=== PATIENT | male | born 1975 | race Caucasian/White ===

== ENCOUNTER → 2024-01-07 14:33 | Outpatient (REF) | payer BC, SELFPAY | LOC: HWRCS 14:33 | PROVIDERS: ATTENDING PHYSICIAN Internal Medicine Cardiovascular Disease; FAMILY PHYSICIAN Family Medicine | DX: I48.91 Unspecified atrial fibrillation (principal) | CPT/HCPCS: 93306 ==

== ENCOUNTER 2024-01-27 06:04 | Day surgery (SDC) | payer BC, SELFPAY ==
[2024-01-12 07:58] VITALS: BMI 31.4
[2024-01-12 08:25] LABS: % Basophils 0.9 % (0-2); % Eosinophils 1.9 % (0-6); % Immature Granulocytes 0.1 % (0-0.5); % Lymphocytes 25.4 % (20.5-51.1); % Monocytes 6.8 % (1.7-9.3); % Neutrophils 64.9 % (42.2-75.2); Absolute Basophils 0.1 10^3/uL (0-0.2); Absolute Eosinophils 0.2 10^3/uL (0-0.7); Absolute Monocytes 0.5 10^3/uL (0.1-0.6); Absolute Neutrophils 5.2 10^3/uL (1.4-6.5); Hematocrit 45.9 % (39.0-52.0); Hemoglobin 15.8 g/dL (13.0-18.0); Mean Corp Hgb Conc. 34.4 g/dL (33.0-37.0); Mean Corpuscular Hgb 30.9 pg (27.0-31.0); Mean Corpuscular Volume 89.6 fL (80.0-94.0); Mean Platelet Volume 9.7 fL (7.4-10.4); Nucleated Red Blood Cells % 0 % (-); Platelet Count 377 10^3/uL (130-400); Red Blood Cell Count 5.12 10^6/uL (4.70-6.10); Red Cell Dist. Width 11.8 % (11.5-14.5)
[2024-01-12 08:35] LABS: INR 1.15; PT 14.6 Sec (11.4-14.6)
[2024-01-12 08:56] LABS: ALT (SGPT) 25 U/L (0-50); AST (SGOT) 27 U/L (17-59); Albumin 4.6 g/dl (3.5-5.0); Alkaline Phosphatase 68 U/L (38-126); Blood Urea Nitrogen 15 mg/dl (9-20); Calcium 10.2 mg/dl (8.4-10.2); Carbon Dioxide 28 mmol/L (22-30); Chloride 106 mmol/L (98-107); Estimated Creatinine Clearance 114 ml/min; Glucose 120 mg/dl (70-99); Potassium 4.8 mmol/L (3.5-5.1); Sodium 144 mmol/L (135-145); Total Bilirubin 1.7 mg/dl (0.2-1.3); eGFR > 60.00
[2024-01-27] VITALS (18 sets, daily range): BP systolic 116–180; BP diastolic 77–133
[2024-01-27] MEDS: NSS 500 IV (06:39)
[2024-01-27] MEDS: TYLENOL 1000 MG PO (06:55)
[2024-01-27 06:56] LABS: Glucose - Point of Care 118 mg/dl (70-99)
[2024-01-27 08:44] LABS: ACT-LR - POC 199 Seconds (116-155)
[2024-01-27 09:02] LABS: ACT-LR - POC 234 Seconds (116-155)
[2024-01-27 09:23] LABS: ACT-LR - POC 234 Seconds (116-155)
--- NOTE | 2024-01-27 09:32 | ITS.CL.ABL ---
[employer] [facility] Chair - Ablation
Ablation
Procedure Report:
ELECTROPHYSIOLOGY ABLATION STUDY
�
DATE:: January 27, 2024�������������������������� REFERRING: Dr. Keven Loredo
�
INDICATION: Persistent supraventricular tachycardia in the form of atrial fibrillation.� At times the patient has organized arrhythmia suggesting atypical flutter
�
HISTORY: See H and P.� As above
�
ANTIARRHYTHMIC DRUG: Discussed class I class III under the drug therapy the patient opted for pulmonary vein isolation
�
PRE-PROCEDURE CAMILLE: No atrial thrombus on intracardiac ultrasound with heavily calcified interatrial fossa and ligament of Leonard region.
�
PRESENTING RHYTHM: Atrial tachycardia�flutter cycle length 260 ms with a P wave that is positive to flat on the precordium and mostly positive in lead 2 and 3.
�
'TIME-OUT':� called and confirmed.
�
SEDATION/ANESTHESIA:� provided via the anesthesia department using general anesthesia (LMA).
�
INTRAVENOUS/ARTERIAL ACCESS:
Right femoral venous - 8Fr
Left femoral venous - 8 Fr, 6 Fr
[id number] suture to each groin
Ultrasound guidance for bilateral femoral vein access was utilized by me to obtain access with demonstration of normal anatomy
CHADS-VASC Score:
�
HAS-Bled Score
�
PROCEDURE:�
1.� A decapolar CS catheter was placed within the CS for mapping and pacing.� This was also used as the reference catheter for the 3-D map. When the coronary sinus catheter was placed the patient was initially in an atrial tachycardia flutter 260
ms with immediate degeneration and atrial fibrillation. Activation of the coronary sinus was proximal distal the week did not have time to entrain tachycardia. As such we proceeded to left atrial access and ablation of the pulmonary veins and the
posterior wall to target the presumed left atrial flutter mechanism. Post ablation we performed EP study and the patient was noninducible for any other tachyarrhythmia.
�
2. The intracardiac ultrasound catheter was positioned in the RA to identify the FO for targeting of transseptal puncture, assist� in identification of the pulmonary vein ostia, monitoring pre and post ablation pulmonary vein flow velocities,
monitoring for 'bubble' formation during RF application as a sign of thermal injury,� and to monitor for pericardial effusion during mapping and ablation procedure.�� Left atrial size, LV ejection fraction, and pulmonary vein flows were monitored
pre and post ablation procedure. The other valves were inspected and found to be free of significant regurgitation or stenosis.
�
3.� Half of the calculated heparin bolus was administered prior to the first transeptal puncture.� Transseptal puncture was performed to diagnose RA and LA pressure so that safety of LA mapping and ablation could be further assessed, and to access
the left atrium and pulmonary veins for mapping and ablation.� This entailed advancing an 10 Palestinian steerable sheath with dilator into the superior vena cava and withdrawing both (monitoring intracardiac ultrasound, fluoroscopy and tip pressure)
with the tip oriented toward the atrial septum.� The fossa ovalis was engaged (indicated by sudden displacement of the sheath tip as well as tenting of the fossa seen on intracardiac ultrasound).� Left atrial access required a pass with the
Brockenbrough needle extended.� Left atrial catheter position was confirmed by pressure monitoring (RA mean pressure 8 mm Hg and LA mean presure 14 mm Hg), LA saturation (99%),� as well as fluoroscopy.� The sheath was advanced over the dilator and
positioned in the left atrium.� This procedure was repeated for the Agilis sheath upgraded over a ProTrac wire to the 10 Palestinian Contour sheath.� The remainder of the calculated heparin bolus was administered and heparin was
infused with multiple boluses to increase the ACT throughout the case. Despite an additional 4000 units and 2000 unit boluses during brief left atrial access the CT peaked at 240s (in addition to initial 7400u bolus/drip). No apparent clot
formation was seen on the catheters with intracardiac ultrasound inspection throughout the case.
�
4.� RA pacing was performed via the proximal decapolar poles and LA pacing was performed via the distal decapolr poles.
�
5. A quadrapolar catheter was first positioned at the His position for His Bundle recording which was tagged via the 3-D Navex sytem, and then passed to the RVA for RV pacing and recording.
�
6. There was connection at the roof of the left superior pulmonary vein and the inferior posterior region of the right inferior pulmonary vein at initial mapping with a multipolar catheter. LIPV, LSPV, RSPV and the RIPV as well as the posterior
wall were targeted with the PFA catheter.
�
7.� Next, a 3-D map was created using Navex.�� A 3-D reconstructed CT image was compared to the 3-D Navex map to assist in anatomic interpretation, mapping and ablation.� The CT image and the NavX image were fused.
�
8. After 0.2 mg of glycopyrrolate the PFA catheter was utilized to reisolate the pulmonary veins and the posterior wall. A total of 90 lesions were given and the patient was cardioverted to sinus rhythm. Entrance and exit block was confirmed in
all 4 pulmonary veins and entrance and exit block was confirmed in the posterior wall from roof down to 1 cm below the inferior veins on the floor of the left atrium. We then performed aggressive burst pacing with atrial extrastimuli and burst
pacing down to atrial refractoriness to 220 ms and the patient was noninducible for any right atrial or left atrial process including atrial fibrillation or atrial flutter.
�
9. Normal sinus node and AV john function were noted.
�
TOTAL FLOURO TIME: 17.5 minutes 123 mGy
�
TOTAL RF DURATION: 0 minutes
�
REVERSAL OF HEPARIN: 20 mg of protamine, slow IV administration given the multiple boluses of heparin
�
COMPLICATIONS:�
None
Intracardiac US shows no pericardial effusion post ablation.
�
SUMMARY:��
Complex left atrial mapping and ablation.
Reisolation of left superior pulmonary vein and right inferior pulmonary veins as well as left atrial posterior wall for presumed left atrial flutter mechanism based upon prior ECG morphology. Post isolation the patient was noninducible for any
other tachyarrhythmia.
�
RECOMMENDATIONS:
1. Admit to monitored bed.�
2. Resume anticoagulation
3.� Out of bed in 4 hours
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
�
Copy to: Dr. Keven Loredo
�
[2024-01-27] MEDS: TYLENOL 650 MG PO (11:42)
[2024-01-27 11:58] LABS: Glucose - Point of Care 185 mg/dl (70-99)
[2024-01-27] MEDS: APRESOLINE 5 MG IV (13:57)
== END 2024-01-27 14:44 | disposition home or self-care (01) ==
LOC: CATH 06:04
PROVIDERS: ATTENDING PHYSICIAN Internal Medicine Cardiovascular Disease; FAMILY PHYSICIAN Family Medicine; OTHER PHYSICIAN Internal Medicine Cardiovascular Disease
DX: I48.91 Unspecified atrial fibrillation (principal); I48.92 Unspecified atrial flutter; I42.8 Other cardiomyopathies; Z79.01 Long term (current) use of anticoagulants; Z79.84 Long term (current) use of oral hypoglycemic drugs; Z79.52 Long term (current) use of systemic steroids
CPT/HCPCS: C1732; C1894; C1730; C1733; C1769; 36415; 75572; 76937; 80053; 82962; 83735; 85025; 85347; 85610; 86850; 86900; 86901; 93005; 93655; 93656; C1759; C1766; C1892; Q9967

== ENCOUNTER → 2024-08-06 15:31 | Outpatient (REF) | payer BC, SELFPAY | LOC: HWRCS 15:31 | PROVIDERS: ATTENDING PHYSICIAN Internal Medicine Cardiovascular Disease; FAMILY PHYSICIAN Family Medicine | DX: I42.9 Cardiomyopathy, unspecified (principal) | CPT/HCPCS: 93306 ==

== ENCOUNTER → 2024-11-29 13:10 | Outpatient (REF) | payer BC, SELFPAY | LOC: DHSLP 13:10 | PROVIDERS: ATTENDING PHYSICIAN Internal Medicine Cardiovascular Disease | DX: G47.30 Sleep apnea, unspecified (principal); R06.83 Snoring | CPT/HCPCS: 95800 ==